=== PATIENT | female | born 1955 | race Caucasian/White ===

== ENCOUNTER 2017-05-12 18:30 | Emergency (ER) | payer OTHER ==
[~2017-05-12] VITALS: Ht 162.6 cm; Wt 90.0 kg
[~2017-05-12 18:30] MED LIST: DOXY100T PO; LORT5TAB PO; SULF-154 PO
[2017-05-12 18:31] VITALS: BP 205/126; PULSE 98; RESP 17; TEMP 98.7; O2SAT 98
[2017-05-12] MEDS ORDERED: hydrALAZINE HCL 20 MG/ML VIAL IV PUSH ONE (18:45)
--- NOTE | 2017-05-12 18:47 | PD ---
HPI Chief Complaint: Hypertension Time Seen by Provider: 18:43 Travel History International Travel<30 days: No Contact w/Intl Traveler<30days: No Traveled to known affect area: No History of Present Illness HPI 61-year-old female Mackenzie to the emergency department for evaluation of hypertension. Patient states she has no known medical history however she does not have a primary care provider and has not for several years. She went for a physical today for a new job when her blood pressure was systolic 200 over diastolic 100s. They advised she come to the emergency department for further evaluation of this. Patient denies any associated symptoms. No chest or tightness. No headache or visual changes. She has no other symptoms to report. PFSH Past Medical History Cardiovascular Problems: Yes Diminished Hearing: No Hypertension: Yes (PT STATES DOES NOT TAKE MED ) Tetanus Vaccination: < 5 Years Influenza Vaccination: Yes ?: Not Past Surgical History Surgical History: No Previous Surgery Social History Alcohol Use: Yes (OCASSIONALLY) Tobacco Use: Yes (1 PACK PER DAY) Substance Use: No (PT DENIES) Allergies-Medications (Allergen,Severity, Reaction): Coded Allergies: No Known Allergies (Verified , 05/12/17) Reported Meds & Prescriptions Reported Meds & Active Scripts Active Amlodipine (Amlodipine Besylate) 5 Mg Tab 5 Mg PO DAILY Review of Systems Except as stated in HPI: all other systems reviewed are Neg Physical Exam Narrative GENERAL: Well-nourished female patient, in no acute distress. SKIN: Focused skin assessment warm/dry. HEAD: Atraumatic. Normocephalic. EYES: Pupils equal and round. No scleral icterus. No injection or drainage. ENT: No nasal bleeding or discharge. Mucous membranes pink and moist. NECK: Trachea midline. No JVD. CARDIOVASCULAR: Regular rate and rhythm. No murmur appreciated. RESPIRATORY: No accessory muscle use. Clear to auscultation. Breath sounds equal bilaterally. GASTROINTESTINAL: Abdomen soft, non-tender, nondistended. Hepatic and splenic margins not palpable. MUSCULOSKELETAL: No obvious deformities. No clubbing. No cyanosis. No edema. NEUROLOGICAL: Awake and alert. No obvious cranial nerve deficits. Motor grossly within normal limits. Normal speech. Data Data Last Documented VS Vital Signs Date Time Temp Pulse Resp B/P (MAP) Pulse Ox O2 Delivery O2 Flow Rate FiO2 05/12/17 20:03 05/12/17 19:24 76 18 97 Room Air 05/12/17 18:31 98.7 Orders Orders Electrocardiogram (05/12/17 18:44) Basic Metabolic Panel (Bmp) (05/12/17 18:44) Complete Blood Count With Diff (05/12/17 18:44) Ecg Monitoring (05/12/17 18:44) Bilateral Bp Monitoring (05/12/17 18:44) Iv Access Insert/Monitor (05/12/17 18:44) Oximetry (05/12/17 18:44) Oxygen Administration (05/12/17 18:44) Sodium Chloride 0.9% Flush (Ns Flush) (05/12/17 18:45) Hydralazine Inj (Apresoline Inj) (05/12/17 18:45) Labs Laboratory Tests Test 05/12/17 18:50 White Blood Count 12.3 TH/MM3 Red Blood Count 4.48 MIL/MM3 Hemoglobin 14.2 GM/DL Hematocrit 41.9 % Mean Corpuscular Volume 93.5 FL Mean Corpuscular Hemoglobin 31.6 PG Mean Corpuscular Hemoglobin Concent 33.8 % Red Cell Distribution Width 14.7 % Platelet Count 403 TH/MM3 Mean Platelet Volume 9.5 FL Neutrophils (%) (Auto) 65.3 % Lymphocytes (%) (Auto) 24.3 % Monocytes (%) (Auto) 7.2 % Eosinophils (%) (Auto) 2.3 % Basophils (%) (Auto) 0.9 % Neutrophils # (Auto) 8.0 TH/MM3 Lymphocytes # (Auto) 3.0 TH/MM3 Monocytes # (Auto) 0.9 TH/MM3 Eosinophils # (Auto) 0.3 TH/MM3 Basophils # (Auto) 0.1 TH/MM3 CBC Comment DIFF FINAL Differential Comment Blood Urea Nitrogen 19 MG/DL Creatinine 1.16 MG/DL Random Glucose 146 MG/DL Calcium Level 9.2 MG/DL Sodium Level 138 MEQ/L Potassium Level 4.0 MEQ/L Chloride Level 107 MEQ/L Carbon Dioxide Level 23.9 MEQ/L Anion Gap 7 MEQ/L Estimat Glomerular Filtration Rate 47 ML/MIN MDM Medical Decision Making Medical Screen Exam Complete: Yes Emergency Medical Condition: Yes Medical Record Reviewed: Yes Differential Diagnosis Hypertension versus electrolyte abnormality versus kidney etiology versus CAD Narrative Course 61 year-old female presents to department for evaluation of high blood pressure. Patient is quite hypertensive here. She is asymptomatic however. She is given 10 mg of IV hydralazine. Laboratory Tests Test 05/12/17 18:50 White Blood Count 12.3 TH/MM3 Red Blood Count 4.48 MIL/MM3 Hemoglobin 14.2 GM/DL Hematocrit 41.9 % Mean Corpuscular Volume 93.5 FL Mean Corpuscular Hemoglobin 31.6 PG Mean Corpuscular Hemoglobin Concent 33.8 % Red Cell Distribution Width 14.7 % Platelet Count 403 TH/MM3 Mean Platelet Volume 9.5 FL Neutrophils (%) (Auto) 65.3 % Lymphocytes (%) (Auto) 24.3 % Monocytes (%) (Auto) 7.2 % Eosinophils (%) (Auto) 2.3 % Basophils (%) (Auto) 0.9 % Neutrophils # (Auto) 8.0 TH/MM3 Lymphocytes # (Auto) 3.0 TH/MM3 Monocytes # (Auto) 0.9 TH/MM3 Eosinophils # (Auto) 0.3 TH/MM3 Basophils # (Auto) 0.1 TH/MM3 CBC Comment DIFF FINAL Differential Comment Blood Urea Nitrogen 19 MG/DL Creatinine 1.16 MG/DL Random Glucose 146 MG/DL Calcium Level 9.2 MG/DL Sodium Level 138 MEQ/L Potassium Level 4.0 MEQ/L Chloride Level 107 MEQ/L Carbon Dioxide Level 23.9 MEQ/L Anion Gap 7 MEQ/L Estimat Glomerular Filtration Rate 47 ML/MIN She does have mild renal insufficiency. It discussed the findings with the patient. I also discussed the patient with my attending physician. She'll be started on amlodipine which is free at the [facility]. She is discharged home. She is encouraged to establish care with a primary care provider. She agrees to return immediately with any acute worsening symptoms. Diagnosis Primary Impression: Hypertension Qualified Codes: I10 - Essential (primary) hypertension Additional Impression: Renal insufficiency Referrals: [facility] Patient Instructions: General Instructions, Hypertension (ED) Additional Instructions: Follow-up with a primary care provider Return immediately with any acute worsening of symptoms Your medication that has been prescribed is free of [facility] pharmacy. Start it tomorrow. Take it as directed. Med/Other Pt SpecificInfo: Prescription(s) given Scripts Amlodipine (Amlodipine) 5 Mg Tab 5 MG PO DAILY for Blood Pressure Management, #30 TAB 0 Refills Prov: Nash,Matilda COOPER HELPER 05/12/17 Disposition: 01 DISCHARGE HOME Condition: Stable Matilda Nash May 12, 2017 18:47
[2017-05-12 18:51] VITALS: BP 214/124; PULSE 86; RESP 18; O2SAT 98
[2017-05-12] MEDS: SODIUM CHLORIDE 0.9% FLUSH 10 ML FLUSH IVF PRN (19:05)
[2017-05-12 19:06] VITALS: BP 175/107; PULSE 74; RESP 16; O2SAT 96
[2017-05-12 19:08] VITALS: BP 161/89; PULSE 73; RESP 16; O2SAT 96
[2017-05-12 19:24] VITALS: BP 161/89; PULSE 76; RESP 18; O2SAT 97
[2017-05-12 19:24] LABS: BASOPHIL # 0.1 TH/MM3 (0-0.2); BASOPHIL % 0.9 % (0.0-2.0); EOSINOPHIL # 0.3 TH/MM3 (0-0.4); EOSINOPHIL % 2.3 % (0.0-4.0); HEMATOCRIT 41.9 % (35.0-46.0); HEMO FLAGS DIFF FINAL; LYMPH % 24.3 % (9.0-44.0); MEAN CELL VOLUME 93.5 FL (80.0-100.0); MEAN CORPUSCULAR HEMOGLOBIN 31.6 PG (27.0-34.0); MEAN CORPUSCULAR HGB CONC 33.8 % (32.0-36.0); MONO % 7.2 % (0.0-8.0); NEUT % 65.3 % (16.0-70.0); PLATELET COUNT 403 TH/MM3 (150-450); RED BLOOD COUNT 4.48 MIL/MM3 (4.00-5.30); RED CELL DISTRIBUTION WIDTH 14.7 % (11.6-17.2); WHITE BLOOD COUNT 12.3 TH/MM3 (4.0-11.0)
[2017-05-12 19:50] LABS: BICARBONATE 23.9 MEQ/L (21.0-32.0)
[2017-05-12] MEDS ORDERED: AMLO5TAB2 PO ×2 (19:55→19:56)
--- NOTE | 2017-05-13 11:16 | EKG ---
Date Performed: 05/12/2017 Time Performed: 18:43:20 PTAGE: 61 years EKG: Sinus rhythm WITH OCCASIONAL VENTRICULAR PREMATURE COMPLEXES MINIMAL VOLTAGE CRITERIA FOR LVH, CONSIDER NORMAL VA RIANT MINIMAL ST DEPRESSION BORDERLINE ECG INTERPRETATION BASED ON A DEFAULT AGE OF 40 YEARS NO PREVIOUS TRACING DOCTOR: Chay Houston Interpretating Date/Time 05/13/2017 11:14:53
== END 2017-05-12 20:16 | disposition home or self-care (01) ==
LOC: NEPC 18:30
DX: I10 Essential (primary) hypertension (principal); N28.9 Disorder of kidney and ureter, unspecified
CPT/HCPCS: 80048; 85025; 93005; 96374; 99284; J0360